=== PATIENT | female | born 1980 | race Caucasian/White ===

== ENCOUNTER 2019-06-05 12:08 | Day surgery (SDC) | payer BC ==
[2019-06-03 16:28] VITALS: BMI 22.4
[2019-06-05] MEDS ORDERED: PROMETHAZINE HCL 25 MG/1 ML VIAL IVPB PRN (13:37)
[2019-06-05] MEDS ORDERED: ONDANSETRON 4 MG/2 ML VIAL IVPUSH PRN (13:37)
[2019-06-05] MEDS ORDERED: oxyCODONE HCL 5 MG TABLET PO PRN (13:37)
[2019-06-05] MEDS ORDERED: LACTATED RINGERS SOLUTION 1,000 ML IV SCH (13:45)
[2019-06-05] MEDS ORDERED: MIDAZOLAM HCL 2 MG/2 ML SINGLE DOSE VIAL ONE (13:49)
[2019-06-05] MEDS ORDERED: SUCCINYLCHOLINE CHLORIDE 200 MG/10 ML SYRINGE ONE (13:50)
[2019-06-05] MEDS ORDERED: PROPOFOL 20 ML ONE (13:50)
--- NOTE | 2019-06-05 14:13 | HP ---
History & Physical Update - History History: No Change - Physical Physical: No Change - Assessment Assessment: No Change - Plan Plan: No Change (D&C, hysteroscopy, polypectomy.)
--- NOTE | 2019-06-05 14:49 | OP ---
Operative Note - Note: Operative Date: 06/05/19 Pre-Operative Diagnosis: Endmoetrial polyp, menorrhagia Operation: Hysteroscopy, polypectomy, D&C Findings: Small uterien polyps at right cornua, normal uterine cavity Post-Operative Diagnosis: Same as Pre-op Surgeon: Dale Byrne Anesthesiologist/PERSONALIZATION SPECIALIST: Rachael Pathak MD Anesthesia: General Specimens Removed: Uterine polyps, endmoetrial curettings. Estimated Blood Loss (mls): 5 Blood Volume Replaced (mls): 0 Fluid Volume Replaced (mls): 500 Operative Report Dictated: Yes
[2019-06-05 15:59] VITALS: TEMP 97.8
[2019-06-05] MEDS ORDERED: ACETAMINOPHEN 1000 MG/100 ML VIAL (NON FORMULARY) IVPB ONE (17:02)
[2019-06-05 17:43] VITALS: BP 125/80; PULSE 80
--- NOTE | 2019-06-05 19:50 | OP ---
DATE OF OPERATION: 06/05/2019 PREOPERATIVE DIAGNOSIS: Endometrial polyp and menorrhagia. POSTOPERATIVE DIAGNOSIS: Endometrial polyp and menorrhagia. PROCEDURE: Hysteroscopy, polypectomy, dilation and curettage. SURGEON: Topher Darnell M.D. ANESTHESIOLOGIST: Rachael Pathak M.D. ANESTHESIA: General anesthesia. COMPLICATIONS: None. PATHOLOGY: Endometrial polyps, endometrial curettings. INTRAVENOUS FLUIDS: 500 mL. ESTIMATED BLOOD LOSS: 5 mL. FINDINGS: An examination under anesthesia revealed a small retroverted uterus with no pelvic or adnexal masses. The uterus is freely mobile, is in the pelvic cavity. Hysteroscopy revealed small uterine polyps in the right cornua region, otherwise normal uterine cavity. POSTOPERATIVE DIAGNOSIS: Normal uterine cavity and no lesions, no polyps. PROCEDURE: The patient was met preoperatively. Risks, benefits, and alternatives of surgery were discussed in detail. The consent form was reviewed and discussed. The patient verbalized her understanding. The consent form was signed. The patient then requested to proceed with the surgery. The patient was brought to the OR with the IV running. She was placed on the surgical table in the supine position. The general anesthesia was achieved without difficulty. The patient was placed in a dorsal lithotomy position using adjustable Bridger stirrups. She was examined under anesthesia with the findings as described above. A timeout was conducted as per standard protocol. The patient was then prepped and draped in the usual sterile fashion. A sterile speculum was then introduced inside the vagina with good visualization of the cervix. The cervix was grasped and stabilized with a single-toothed tenaculum. The endocervical canal was dilated using graduated Edouard dilators. A hysteroscopy was then performed with the findings as described above. A Symphion hysteroscopy resectoscope was then used to remove the uterine polyps. Once this was accomplished, the resectoscope was removed. A sharp uterine curettage was performed. The tissue was sent to pathology. All instruments were then removed from the patient. Good hemostasis was noted. Sponge, lap, and instrument counts were correct. The patient was returned to supine position. She was transferred to recovery room, awakened in stable condition and awake. TOPHER DARNELL M.D. NICKY/[id number]
--- NOTE | 2019-06-07 15:57 | PATH ---
Surgical Pathology Report Patient Name: LINDA ANTUNEZ [facility]. Rec. #: [id number] /Age/Gender: 1980 (Age: 38) / F Account: [id number] Location: [facility] Taken: 06/05/2019 Received: 06/06/2019 Reported: 06/07/2019 Physicians: Dale Byrne M.D. Specimen(s) Received A: ENDOMETRIAL POLYP B: ENDOMETRIAL CURETTINGS Clinical History Endometrial polyp Final Diagnosis A. ENDOMETRIAL POLYP, RESECTION: FRAGMENTS OF POLYPOID PROLIFERATIVE ENDOMETRIUM WITH CHRONIC ENDOMETRITIS AND BENIGN ENDOCERVICAL TISSUE. B. ENDOMETRIAL CURETTINGS, DILATION AND CURETTAGE: FRAGMENTS OF POLYPOID PROLIFERATIVE ENDOMETRIUM WITH CHRONIC ENDOMETRITIS, FOCAL STROMAL BREAKDOWN, AND BENIGN ENDOCERVICAL TISSUE. Electronically Signed Maureen Almanza M.D. Gross Description A. Received in formalin labeled "endometrial polyp," is a 2.2 x 1.6 x 0.3 cm aggregate of villarreal soft tissue fragments. The formalin is filtered and the specimen is entirely submitted in one cassette. B. Received in formalin labeled "endometrial curettings," is a 2.2 x 2.0 x 0.3 cm aggregate of villarreal brown soft tissue fragments. The formalin is filtered and the specimen is entirely submitted in one cassette. 06/06/201906/06/2019
== END 2019-06-05 17:35 | disposition home or self-care (01) ==
LOC: JASU-SURG 12:08
PROVIDERS: ATTEND Obstetrics & Gynecology
PROC: 0UJD8ZZ Inspection of Uterus and Cervix, Via Natural or Artificial Opening Endoscopic (ICD-10-PCS; 2019-06-05)
PROC: 0UB97ZX Excision of Uterus, Via Natural or Artificial Opening, Diagnostic (ICD-10-PCS; principal; 2019-06-05 14:00)
PROC: 0UDB7ZX Extraction of Endometrium, Via Natural or Artificial Opening, Diagnostic (ICD-10-PCS; 2019-06-05 14:00)
DX: N84.0 Polyp of corpus uteri (principal); N92.0 Excessive and frequent menstruation with regular cycle
CPT/HCPCS: 84703; 88305-TC; 94760

== ENCOUNTER 2021-02-17 00:47 | Observation (INO) | payer BC ==
[2021-02-17 01:07] VITALS: BMI 22.4
[2021-02-17] MEDS ORDERED: LACTATED RINGERS SOLUTION 1000 ML INFUS.BAG IV ONE (02:36)
[2021-02-17 02:53] LABS: BASO % 0.6 % (0-2.0); EOS % 0.6 % (0-4.5); HEMATOCRIT 28.6 % (32.4-45.2); HEMOGLOBIN 9.5 GM/dL (10.7-15.3); LYMPH % 9.4 % (8-40); MCH 29.2 pg (25.7-33.7); MCHC 33.3 g/dl (32.0-36.0); MEAN CELL VOLUME 87.7 fl (80-96); MEAN PLT VOLUME 8.1 fl (7.5-11.1); MONO % 5.6 % (3.8-10.2); NEUT % 83.8 % (42.8-82.8); PLATELET COUNT 379 10^3/uL (134-434); RBC 3.26 M/mm3 (3.60-5.2); RDW 16.1 % (11.6-15.6); WHITE BLOOD COUNT 16.3 K/mm3 (4.0-10.0)
[2021-02-17 02:58] LABS: INR 1.05 (0.83-1.09); PROTHROMBIN TIME (PATIENT) 12.9 SEC (9.7-13.0)
[2021-02-17 03:01] LABS: ACTIVATED PTT 23.2 SECONDS (25.2-36.5)
[2021-02-17 03:11] LABS: CHLORIDE 106 mmol/L (98-107); SODIUM 139 mmol/L (136-145)
[2021-02-17 03:13] LABS: CALCIUM 8.7 mg/dL (8.5-10.1)
[2021-02-17 03:14] LABS: ALBUMIN 3.8 g/dl (3.4-5.0); ANION GAP 8 MMOL/L (8-16); BLOOD UREA NITROGEN 20.9 mg/dL (7-18); CO2 25 mmol/L (21-32); GLUCOSE,RANDOM 103 mg/dL (74-106)
[2021-02-17 03:17] LABS: CREATININE 0.7 mg/dL (0.55-1.3); SGOT/AST 10 U/L (15-37); SGPT/ALT 16 U/L (13-61)
[2021-02-17 03:18] LABS: BILIRUBIN,TOTAL 0.4 mg/dL (0.2-1)
[2021-02-17 03:19] LABS: TOT PROT 7.5 g/dl (6.4-8.2)
[2021-02-17 03:20] LABS: ALK PHOS 122 U/L (45-117)
[2021-02-17] MEDS ORDERED: POTASSIUM CHLORIDE TABS 20 MEQ TABLET.ER (FP) PO ONE ×2 (04:10→04:33)
[2021-02-17] MEDS ORDERED: SODIUM CHLORIDE 1,000 ML IV SCH (04:15)
[2021-02-17 06:37] LABS: BASO % 0.4 % (0-2.0); EOS % 0.1 % (0-4.5); HEMATOCRIT 25.2 % (32.4-45.2); HEMOGLOBIN 8.5 GM/dL (10.7-15.3); LYMPH % 6.4 % (8-40); MCH 29.9 pg (25.7-33.7); MCHC 33.7 g/dl (32.0-36.0); MEAN CELL VOLUME 88.6 fl (80-96); MEAN PLT VOLUME 8.2 fl (7.5-11.1); MONO % 2.4 % (3.8-10.2); NEUT % 90.7 % (42.8-82.8); PLATELET COUNT 331 10^3/uL (134-434); RBC 2.84 M/mm3 (3.60-5.2)
[2021-02-17 07:03] LABS: CHLORIDE 111 mmol/L (98-107); SODIUM 140 mmol/L (136-145)
[2021-02-17 07:06] LABS: CALCIUM 8.4 mg/dL (8.5-10.1)
[2021-02-17 07:07] LABS: ANION GAP 4 MMOL/L (8-16); BLOOD UREA NITROGEN 15.9 mg/dL (7-18); CO2 25 mmol/L (21-32); GLUCOSE,RANDOM 109 mg/dL (74-106); MAGNESIUM 2.3 mg/dL (1.8-2.4)
[2021-02-17 07:10] LABS: CREATININE 0.7 mg/dL (0.55-1.3)
[2021-02-17] MEDS ORDERED: IRON SUCROSE INJECTION 200 MG in SODIUM CHLORIDE 90 ML IVPB ONE (08:30)
[2021-02-17 10:10] VITALS: BP 117/72; PULSE 74; TEMP 99.1
[2021-02-17 10:10] LABS: EPI CELLS 18 /uL (0-25.1); HYALINE CASTS 1 /uL (0-3.1); PH,URINE 6.5 (5.0-8.0); URINE APPEARANCE CLEAR; URINE BACTERIA >9,000 /uL (0-1359); URINE BILIRUBIN NEGATIVE (NEGATIVE); URINE COLOR YELLOW; URINE GLUCOSE (UA) NEGATIVE (NEGATIVE); URINE KETONE NEGATIVE (NEGATIVE); URINE LEUK ESTERASE NEGATIVE (NEGATIVE); URINE NITRITE NEGATIVE (NEGATIVE); URINE PROTEIN NEGATIVE (NEGATIVE); URINE RBC 535 /uL (0-23.9); URINE UROBILINOGEN 0.2 mg/dL (0.2-1.0); URINE WBC 22 /uL (0-25.8)
== END 2021-02-17 11:08 | disposition home or self-care (01) ==
LOC: JER 00:47 → JERBED 03:37
PROVIDERS: ADMIT Internal Medicine; ATTEND Internal Medicine
PROC: 3E033GC Introduction of Other Therapeutic Substance into Peripheral Vein, Percutaneous Approach (ICD-10-PCS; principal; 2021-02-17)
PROC: 3E0337Z Introduction of Electrolytic and Water Balance Substance into Peripheral Vein, Percutaneous Approach (ICD-10-PCS; 2021-02-17)
DX: N80.0 Endometriosis of uterus (principal); N83.209 Unspecified ovarian cyst, unspecified side; N93.9 Abnormal uterine and vaginal bleeding, unspecified; R55 Syncope and collapse; E03.9 Hypothyroidism, unspecified
CPT/HCPCS: 36415; 71045-TC-FY; 76830-TC; 80048; 80053; 81003; 82550; 83735; 84484; 84702; 85025; 85610; 85730; 86850; 86900; 86901; 87086; 87186; 93005; 93010; 96361; 96365; 99285-25; C9803; G0378; J1756; U0003; U0005